=== PATIENT | male | born 1940 | race Caucasian/White ===

== ENCOUNTER 2019-12-02 22:10 | Observation (INO) | payer MEDICARE ==
[2019-12-02] MEDS ORDERED: Sodium Chloride 0.9% 1000 ML 1,000 ML IV STA (22:32)
[2019-12-02] MEDS ORDERED: Sodium Chloride 0.9% 1000 ML 1,000 ML ONE (22:38)
[2019-12-02 23:02] LABS: Absolute Neutrophil Ct (ANC) 8.69 (1.4-6.9); BASOPHIL % 0.2 % (0.0-0.4); Basophil (Absolute #) 0.02 (0-0.4); Eosinophil (Absolute #) 0 (0-0.5); Hematocrit 43.2 % (42-50); Hemoglobin 14.5 gm/dl (12.5-18.0); Lymphocyte (Absolute #) 0.56 (1.0-4.6); Lymphocytes % 5.5 % (24.0-44.0); Mean Cell Volume 91.9 fl (78-100); Mean Corpuscular Hemoglobin 30.9 pg (26-32); Mean Corpuscular Hgb Concent. 33.6 g/dl (32-36); Mean Platelet Volume 9.6 fl (7.5-11.0); Monocyte (Absolute #) 0.83 (0.0-1.3); Monocytes % 8.2 % (0.0-12.0); Neutrophil % 86.1 % (36.0-66.0); Platelet Count 207 K/mm3 (150-450); Red Cell Distribution Width 13.8 % (11.5-14.0); White Blood Count 10.1 K/mm3 (4.0-10.5)
[2019-12-02 23:12] LABS: INR 1.54 (0.8-3.0); PROTIME 17.5 SECONDS (8.83-12.87)
[2019-12-02 23:14] LABS: PTT 35.6 SECONDS (24.1-36.1)
[2019-12-02 23:25] LABS: ALBUMIN 4.1 g/dL (3.5-5.0); ALKALINE PHOSPHATASE 501 U/L (38-126); AMYLASE 65 U/L (30-110); ANION GAP 13.3 MEQ/L (5-15); BLOOD UREA NITROGEN 23 mg/dL (9-20); CHLORIDE 106 mmol/L (98-107); CK-Creatinine Phosphokinase 793 U/L (55-170); Calcium 9.7 mg/dL (8.4-10.2); Carbon Dioxide 22 mmol/L (22-30); Creatinine 1 0.75 mg/dL (0.66-1.25); Glucose 112 mg/dL (74-106); LIPASE 58 U/L (23-300); NT PRO BNP 1320 pg/mL (0-1800); Potassium 3.9 mmol/L (3.5-5.1); SGOT/AST 49 U/L (17-59); SGPT/ALT 17 U/L (0-50); SODIUM 138 mmol/L (137-145); Total Protein 7.5 g/dL (6.3-8.2)
[2019-12-02 23:39] LABS: Erythrocyte Sedimentation Rate 33 mm/hr (0-15)
[2019-12-02 23:40] LABS: Slide Review 1 YES
--- NOTE | 2019-12-03 00:14 | ERPHSYRPT ---
- History of Present Illness Time Seen by Provider: 12/02/19 22:25 Source: patient Exam Limitations: clinical condition Patient Subjective Stated Complaint: pt state he was in a 2 x 2 closet and fell , pt states that he was in the closet for a few hours before he was able to make his way out of the closet, pt states that he was able to crawl out of the closet, pt states that he has been on the ground since 8 am this morning, EMS states that they tried to assist pt to his feet but was unable to do so, EMS states that pt had been in prone position since 8 am, pt states that he has had increased weakness for the past few months Triage Nursing Assessment: pt came into the er via ambulance, pt is axo x3, pt is pale, pt has scattered bruising, abrasion to rt chest and left elbow, clear lung sounds, clear heart tones, strong pulses in all extremities, consultant weak, pupils 3 mm and PERRL, active bowels sounds in all quads, afebrile, hypertensive , dry mucus membranes Physician History: 79-year-old male who was found down this evening apparently had been in the back of a closet where he fell the entire day has multiple pressure sores and abrasions. He could not get out of the closet or get up. Past medical conditions include chronic atrial fib for which he takes Eliquis. Timing/Duration: today Severity: moderate Associated Symptoms: weakness Allergies/Adverse Reactions: No Known Drug Allergies Allergy (Unverified 12/02/19 22:50) Home Medications: Apixaban [Eliquis] 2.5 mg PO DAILY 12/02/19 [History] Atorvastatin Calcium [Lipitor] 40 mg PO DAILY 12/02/19 [History] Metoprolol Tartrate 25 mg PO BID 12/02/19 [History] lisinopriL [Lisinopril] 5 mg PO DAILY 12/02/19 [History] Hx Tetanus, Diphtheria Vaccination/Date Given: Yes Hx Influenza Vaccination/Date Given: No Hx Pneumococcal Vaccination/Date Given: Yes Travel Risk - International Travel Have you traveled outside of the country in past 3 weeks: No - Coronavirus Screening Are you exhibiting any of the following symptoms?: No Close contact with a COVID-19 positive Pt in past 14-21 Days: No - Review of Systems Constitutional: No Fever, No Chills Eyes: No Symptoms Ears, Nose, & Throat: No Symptoms Respiratory: No Cough, No Dyspnea Cardiac: No Chest Pain, No Edema, No Syncope Abdominal/Gastrointestinal: No Abdominal Pain, No Nausea, No Vomiting, No Diarrhea Genitourinary Symptoms: No Dysuria Musculoskeletal: No Back Pain, No Neck Pain Skin: No Rash Neurological: No Dizziness, No Focal Weakness, No Sensory Changes Psychological: No Symptoms Endocrine: No Symptoms All Other Systems: Reviewed and Negative - Past Medical History Pertinent Past Medical History: Yes Neurological History: No Pertinent History ENT History: No Pertinent History Cardiac History: Arrhythmia, High Cholesterol, Hypertension Respiratory History: No Pertinent History Endocrine Medical History: No Pertinent History Musculoskeletal History: Rheumatoid Arthritis GI Medical History: No Pertinent History History: No Pertinent History Psycho-Social History: No Pertinent History Male Reproductive Disorders: Prostate Cancer - Past Surgical History Past Surgical History: Yes Neuro Surgical History: No Pertinent History Cardiac: No Pertinent History Respiratory: No Pertinent History Gastrointestinal: No Pertinent History Genitourinary: No Pertinent History Musculoskeletal: No Pertinent History Male Surgical History: Prostate Surgery Other Surgical History: balloon to the left leg for dvt - Social History Smoking Status: Former smoker Exposure to second hand smoke: No Patient Lives Alone: Yes - Nursing Vital Signs Nursing Vital Signs: Initial Vital Signs Temperature 98.2 F 12/02/19 22:18 Pulse Rate 106 H 12/02/19 22:18 Respiratory Rate 16 12/02/19 22:18 Blood Pressure 145/104 12/02/19 22:18 O2 Sat by Pulse Oximetry 98 12/02/19 22:18 Pain Scale Pain Intensity 0 - Physical Exam General Appearance: mild distress, alert Eye Exam: PERRL/EOMI, eyes nml inspection Ears, Nose, Throat Exam: normal ENT inspection, TMs normal, pharynx normal, moist mucous membranes Neck Exam: normal inspection, non-tender, supple, full range of motion Respiratory Exam: normal breath sounds, lungs clear, No respiratory distress Cardiovascular Exam: regular rate/rhythm, normal heart sounds, normal peripheral pulses Gastrointestinal/Abdomen Exam: soft, normal bowel sounds, No tenderness, No mass Back Exam: normal inspection, normal range of motion, No CVA tenderness, No vertebral tenderness Extremity Exam: normal inspection, normal range of motion, pelvis stable Neurologic Exam: alert, oriented x 3, cooperative, normal mood/affect, nml cerebellar function, nml station & gait, sensation nml, confusion, No motor deficits Skin Exam: normal color, warm, dry, other (Superficial abrasions and areas of erythema from pressure.), No rash Lymphatic Exam: No adenopathy SpO2 Interpretation: normal SpO2: 98 O2 Delivery: Room Air - Course Nursing assessment & vital signs reviewed: Yes EKG Interpreted by Me: RATE (99), A-fib, NORMAL AXIS, NORMAL QRS, Non-specific ST Changes - Radiology Exams Chest X-ray Interpretation: Other (Changes no acute changes noted) - CT Exams Head CT Interpretation: Other (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) Ordered Tests: Active Orders 24 hr Category Date Time Status EKG-ER Only STAT Care 12/02/19 22:32 Active IV Insertion STAT Care 12/02/19 22:32 Active CHEST 1 VIEW (PORTABLE) Stat Exams 12/02/19 22:33 Taken HEAD WITHOUT CONTRAST [CT] Stat Exams 12/02/19 22:35 Taken AMYLASE Stat Lab 12/02/19 22:45 Completed BLOOD CULTURE Stat Lab 12/02/19 22:45 Received CBC W DIFF Stat Lab 12/02/19 22:45 Completed CK-Creatinine Phosphokinase Stat Lab 12/02/19 22:45 Completed CMP Stat Lab 12/02/19 22:45 Completed D-DIMER QUANTITATIVE Stat Lab 12/02/19 22:45 Completed Erythrocyte Sedimentation Rate Stat Lab 12/02/19 22:45 Completed LIPASE Stat Lab 12/02/19 22:45 Completed Lactic Acid Stat Lab 12/02/19 22:45 Completed MAGNESIUM Stat Lab 12/02/19 22:45 Completed NT PRO BNP Stat Lab 12/02/19 22:45 Completed PROTIME WITH INR Stat Lab 12/02/19 22:45 Completed PTT Stat Lab 12/02/19 22:45 Completed TROPONIN Q3H Lab 12/02/19 22:45 Completed TROPONIN Q3H Lab 12/03/19 01:45 Ordered TROPONIN Q3H Lab 12/03/19 04:45 Ordered TROPONIN Q3H Lab 12/03/19 07:45 Ordered TROPONIN Q3H Lab 12/03/19 10:45 Ordered UA W/RFX UR CULTURE Stat Lab 12/02/19 22:33 Uncollected Medication Summary Discontinued Medications Generic Name Dose Route Start Last Admin Trade Name Freq PRN Reason Stop Dose Admin Sodium Chloride 1,000 mls @ 999 mls/hr 12/02/19 22:32 12/02/19 22:39 Sodium Chloride 0.9% 1000 Ml IV 12/02/19 23:32 999 mls/hr .Q1H1M STA Administration Sodium Chloride Confirm 12/02/19 22:38 Sodium Chloride 0.9% 1000 Ml Administered 12/02/19 22:39 Dose 1,000 mls @ ud .ROUTE .STK-MED ONE Lab/Rad Data: Laboratory Result Diagrams 12/02/19 22:45 12/02/19 22:45 Laboratory Results 12/02/19 12/02/19 12/02/19 Range/Units 22:45 22:45 22:45 WBC (4.0-10.5) K/mm3 RBC (4.1-5.6) M/mm3 Hgb (12.5-18.0) gm/dl Hct (42-50) % MCV (78-100) fl MCH (26-32) pg MCHC (32-36) g/dl RDW (11.5-14.0) % Plt Count (150-450) K/mm3 MPV (7.5-11.0) fl Gran % (36.0-66.0) % Eos # (Auto) (0-0.5) Absolute Lymphs (auto) (1.0-4.6) Absolute Monos (auto) (0.0-1.3) Lymphocytes % (24.0-44.0) % Monocytes % (0.0-12.0) % Eosinophils % (0.00-5.0) % Basophils % (0.0-0.4) % Absolute Granulocytes (1.4-6.9) Basophils # (0-0.4) ESR (0-15) mm/hr PT 17.5 H (8.83-12.87) SECONDS INR 1.54 (0.8-3.0) APTT 35.6 (24.1-36.1) SECONDS D-Dimer 2421 H* (215-500) ng/mL Sodium 138 (137-145) mmol/L Potassium 3.9 (3.5-5.1) mmol/L Chloride 106 (98-107) mmol/L Carbon Dioxide 22 (22-30) mmol/L Anion Gap 13.3 (5-15) MEQ/L BUN 23 H (9-20) mg/dL Creatinine 0.75 (0.66-1.25) mg/dL Estimated GFR > 60.0 ML/MIN Glucose 112 H (74-106) mg/dL Lactic Acid (0.4-2.0) Calcium 9.7 (8.4-10.2) mg/dL Magnesium 2.0 (1.6-2.3) mg/dL Total Bilirubin 1.40 H (0.2-1.3) mg/dL AST 49 (17-59) U/L ALT 17 (0-50) U/L Alkaline Phosphatase 501 H (38-126) U/L Creatine Kinase 793 H (55-170) U/L Troponin I 0.031 (0.000-0.034) ng/mL NT-Pro-B Natriuret Pep 1320 (0-1800) pg/mL Serum Total Protein 7.5 (6.3-8.2) g/dL Albumin 4.1 (3.5-5.0) g/dL Amylase 65 (30-110) U/L Lipase 58 (23-300) U/L Slides for Path Review 12/02/19 12/02/19 Range/Units 22:45 22:45 WBC 10.1 (4.0-10.5) K/mm3 RBC 4.70 (4.1-5.6) M/mm3 Hgb 14.5 (12.5-18.0) gm/dl Hct 43.2 (42-50) % MCV 91.9 (78-100) fl MCH 30.9 (26-32) pg MCHC 33.6 (32-36) g/dl RDW 13.8 (11.5-14.0) % Plt Count 207 (150-450) K/mm3 MPV 9.6 (7.5-11.0) fl Gran % 86.1 H (36.0-66.0) % Eos # (Auto) 0 (0-0.5) Absolute Lymphs (auto) 0.56 L (1.0-4.6) Absolute Monos (auto) 0.83 (0.0-1.3) Lymphocytes % 5.5 L (24.0-44.0) % Monocytes % 8.2 (0.0-12.0) % Eosinophils % 0.0 (0.00-5.0) % Basophils % 0.2 (0.0-0.4) % Absolute Granulocytes 8.69 H (1.4-6.9) Basophils # 0.02 (0-0.4) ESR 33 H (0-15) mm/hr PT (8.83-12.87) SECONDS INR (0.8-3.0) APTT (24.1-36.1) SECONDS D-Dimer (215-500) ng/mL Sodium (137-145) mmol/L Potassium (3.5-5.1) mmol/L Chloride (98-107) mmol/L Carbon Dioxide (22-30) mmol/L Anion Gap (5-15) MEQ/L BUN (9-20) mg/dL Creatinine (0.66-1.25) mg/dL Estimated GFR ML/MIN Glucose (74-106) mg/dL Lactic Acid 1.5 (0.4-2.0) Calcium (8.4-10.2) mg/dL Magnesium (1.6-2.3) mg/dL Total Bilirubin (0.2-1.3) mg/dL AST (17-59) U/L ALT (0-50) U/L Alkaline Phosphatase (38-126) U/L Creatine Kinase (55-170) U/L Troponin I (0.000-0.034) ng/mL NT-Pro-B Natriuret Pep (0-1800) pg/mL Serum Total Protein (6.3-8.2) g/dL Albumin (3.5-5.0) g/dL Amylase (30-110) U/L Lipase (23-300) U/L Slides for Path Review YES - Progress Progress: unchanged - Departure Departure Disposition: Observation Clinical Impression: Fall Condition: Fair Critical Care Time: No Referrals: BRENDA BERKOWITZ [Primary Care Provider] - Instructions: Preventing Falls
[2019-12-03] MEDS ORDERED: Sodium Chloride 0.9% 1000 ML 1,000 ML IV SCH (00:15)
[2019-12-03] MEDS: Sodium Chloride 0.9% 1000 ML 1,000 ML IV SCH ×4 (01:17→18:44)
[2019-12-03] MEDS: TYLENOL 325 MG PO PRN (01:17)
[2019-12-03 05:05] LABS: Absolute Neutrophil Ct (ANC) 5.27 (1.4-6.9); BASOPHIL % 0.1 % (0.0-0.4); Basophil (Absolute #) 0.01 (0-0.4); Eosinophil % 0.3 % (0.00-5.0); Eosinophil (Absolute #) 0.02 (0-0.5); Hematocrit 37.2 % (42-50); Hemoglobin 12.2 gm/dl (12.5-18.0); Lymphocyte (Absolute #) 1.13 (1.0-4.6); Mean Cell Volume 92.8 fl (78-100); Mean Corpuscular Hemoglobin 30.4 pg (26-32); Mean Corpuscular Hgb Concent. 32.8 g/dl (32-36); Mean Platelet Volume 9.9 fl (7.5-11.0); Monocyte (Absolute #) 0.64 (0.0-1.3); Monocytes % 9.1 % (0.0-12.0); Neutrophil % 74.5 % (36.0-66.0); Platelet Count 188 K/mm3 (150-450); Red Blood Count 4.01 M/mm3 (4.1-5.6); Red Cell Distribution Width 13.8 % (11.5-14.0); White Blood Count 7.1 K/mm3 (4.0-10.5)
[2019-12-03 06:26] LABS: ALBUMIN 3.1 g/dL (3.5-5.0); ALKALINE PHOSPHATASE 358 U/L (38-126); ANION GAP 9.2 MEQ/L (5-15); BLOOD UREA NITROGEN 23 mg/dL (9-20); CHLORIDE 110 mmol/L (98-107); Calcium 8.8 mg/dL (8.4-10.2); Carbon Dioxide 22 mmol/L (22-30); Creatinine 1 0.64 mg/dL (0.66-1.25); Glucose 117 mg/dL (74-106); Potassium 3.5 mmol/L (3.5-5.1); SGOT/AST 59 U/L (17-59); SGPT/ALT 17 U/L (0-50); SODIUM 138 mmol/L (137-145); Total Protein 6.2 g/dL (6.3-8.2)
--- NOTE | 2019-12-03 09:08 | XRAY ---
Indication: Found on floor following fall. Weakness. Multiple contiguous axial images obtained through the head without contrast. Comparison: None Age-appropriate global atrophy and mild periventricular degenerative micro-ischemia bilaterally. 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 No acute intracranial hemorrhage, hydrocephalus, or mass effect. Fourth ventricle is midline. Bony calvarium intact with mild hyperostosis frontalis interna. Visualized paranasal sinuses and mastoid air cells are clear. 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 No acute intracranial abnormalities. Comment: Preliminary interpretation was made by [facility]. No critical discrepancy.
--- NOTE | 2019-12-03 09:08 | XRAY ---
Indication: Found on floor following fall. Comparison: None Portable chest hyperinflated with a few small bilateral nodules, some appearing calcified and probable calcified granulomas. Mild left infrahilar interstitial opacities, probable fibrosis/scarring. No focal infiltrate, consolidation, or large effusion. Heart is not enlarged. Bony thorax intact with mild osteopenia and degenerative changes. Impression: COPD. Bilateral pulmonary nodules, a few calcified and probably calcific granulomas. Also left infrahilar interstitial opacities, possible fibrosis/scarring. Comparison studies would be of benefit if available elsewhere. If not, CT chest may yield further information.
[2019-12-03] MEDS ORDERED: ELIQUIS 2.5 MG TABLET ONE (10:33)
[2019-12-03] MEDS ORDERED: Zestril 5 MG ONE (10:34)
[2019-12-03] MEDS ORDERED: Lopressor 25MG Tab ONE (10:34)
[2019-12-03] MEDS ORDERED: ZOCOR 20MG ONE (10:34)
[2019-12-03] MEDS: Zestril 5 MG PO SCH (10:43)
[2019-12-03] MEDS: ZOCOR 20MG PO SCH (10:43)
[2019-12-03] MEDS: ELIQUIS 2.5 MG TABLET PO SCH (10:43)
[2019-12-03] MEDS: Lopressor 25MG Tab PO SCH (10:43)
[2019-12-03 16:16] LABS: Appearance SLIGHTLY CLOUDY (CLEAR); Bacteria RARE /HPF (NEGATIVE); Bilirubin NEGATIVE (NEGATIVE); Blood MODERATE Ery/ul (0-5); Glucose NEGATIVE (NEGATIVE); Ketones TRACE (NEGATIVE); Leukocyte Esterase NEGATIVE (NEGATIVE); Mucus SLIGHT /HPF (NEGATIVE); Nitrite NEGATIVE (NEGATIVE); Protein,Urine Dip 30 (Negative); Specific Gravity 1.028 (1.005-1.025); Urobilinogen NEGATIVE mg/dL (0-1)
--- NOTE | 2019-12-03 17:14 | PCM.HP ---
History of Present Illness - Chief Complaint Chief Complaint: Fall Date: 12/03/19 History of Present Illness: is a 79 year old male pt of Dr. Nelson with HTN, hyperlipidemia, rheumatoid arthritis, hx prostate ca, and hx LLE DVT who fell at home in his closet and was there about 10h, unable to stand. He has apparently had increased weakness for the past few months. He denies any syncope. Preliminary reads of head CT and CXR were neg. In ER his CK was initially 793, and this morning was 804. C/o being sore today, particularly around the L side of his rib cage. - Review of Systems Genitourinary Symptoms: Hematuria (intermittently) Neurological: Other (eczema on buttocks) All Other Systems: Reviewed and Negative Medications & Allergies Home Medications: Home Medication List Apixaban [Eliquis] 2.5 mg PO DAILY 12/02/19 [History Confirmed 12/03/19] Atorvastatin Calcium [Lipitor] 40 mg PO DAILY 12/02/19 [History Confirmed 12/03/19] Metoprolol Tartrate 25 mg PO DAILY 12/02/19 [History Confirmed 12/03/19] lisinopriL [Lisinopril] 5 mg PO DAILY 12/02/19 [History Confirmed 12/03/19] Allergies/Adverse Reactions: Allergies Allergy/AdvReac Type Severity Reaction Status Date / Time No Known Drug Allergies Allergy Unverified 12/02/19 22:50 - Past Medical History Past Medical History: Yes Neurological History: No Pertinent History ENT History: No Pertinent History Cardiac History: Arrhythmia, High Cholesterol, Hypertension Respiratory History: No Pertinent History Endocrine Medical History: No Pertinent History Musculoskelatal History: Rheumatoid Arthritis GI Medical History: No Pertinent History History: No Pertinent History Pyscho-Social History: No Pertinent History Male Reproductive Disorders: Prostate Cancer - Past Surgical History Past Surgical History: Yes Neuro Surgical History: No Pertinent History Cardiac History: No Pertinent History Respiratory Surgery: No Pertinent History GI Surgical History: No Pertinent History Genitourinary Surgical Hx: No Pertinent History Musculskeletal Surgical Hx: No Pertinent History Male Surgical History: Prostate Surgery Other Surgical History: balloon to the left leg for dvt - Social History Smoking Status: Former smoker Exposure to second hand smoke: No Alcohol: None Drug Use: none - Physical Exam Vital Signs: Vital Signs - 24 hr Temp Pulse Resp BP BP Pulse Ox 06/16/20 16:00 98.4 F 70 16 122/60 95 12/03/19 12:00 98.4 F 76 16 94/56 94 L 12/03/19 07:58 98.4 F 96 H 16 132/71 96 12/03/19 04:00 98.7 F 85 24 106/64 98 12/03/19 01:56 98.6 F 89 18 135/84 98 12/03/19 01:01 98.6 F 89 135/84 98 12/03/19 00:26 97 H 140/93 99 12/03/19 00:13 98 12/02/19 22:18 98.2 F 106 H 16 145/104 98 General Appearance: no apparent distress, alert Neurologic Exam: oriented x 3, cooperative Eye Exam: eyes nml inspection Ears, Nose, Throat Exam: moist mucous membranes Neck Exam: normal inspection, non-tender, No lymphadenopathy Respiratory Exam: normal breath sounds, lungs clear, other (L ribs nttp, no cre pitus), No crackles/rales, No rhonchi, No wheezing Cardiovascular Exam: regular rate/rhythm, normal heart sounds, No murmur Gastrointestinal/Abdomen Exam: soft, normal bowel sounds, No tenderness, No distention, No mass, No guarding, No rebound Results - Labs Lab/Micro Results: Lab Results-Last 24 Hours 12/02/19 12/02/19 12/02/19 Range/Units 22:45 22:45 22:45 WBC 10.1 (4.0-10.5) K/mm3 RBC 4.70 (4.1-5.6) M/mm3 Hgb 14.5 (12.5-18.0) gm/dl Hct 43.2 (42-50) % MCV 91.9 (78-100) fl MCH 30.9 (26-32) pg MCHC 33.6 (32-36) g/dl RDW 13.8 (11.5-14.0) % Plt Count 207 (150-450) K/mm3 MPV 9.6 (7.5-11.0) fl Gran % 86.1 H (36.0-66.0) % Eos # (Auto) 0 (0-0.5) Absolute Lymphs (auto) 0.56 L (1.0-4.6) Absolute Monos (auto) 0.83 (0.0-1.3) Lymphocytes % 5.5 L (24.0-44.0) % Monocytes % 8.2 (0.0-12.0) % Eosinophils % 0.0 (0.00-5.0) % Basophils % 0.2 (0.0-0.4) % Absolute Granulocytes 8.69 H (1.4-6.9) Basophils # 0.02 (0-0.4) ESR 33 H (0-15) mm/hr PT (8.83-12.87) SECONDS INR (0.8-3.0) APTT (24.1-36.1) SECONDS D-Dimer (215-500) ng/mL Sodium 138 (137-145) mmol/L Potassium 3.9 (3.5-5.1) mmol/L Chloride 106 (98-107) mmol/L Carbon Dioxide 22 (22-30) mmol/L Anion Gap 13.3 (5-15) MEQ/L BUN 23 H (9-20) mg/dL Creatinine 0.75 (0.66-1.25) mg/dL Estimated GFR > 60.0 ML/MIN Glucose 112 H (74-106) mg/dL Lactic Acid 1.5 (0.4-2.0) Calcium 9.7 (8.4-10.2) mg/dL Magnesium 2.0 (1.6-2.3) mg/dL Total Bilirubin 1.40 H (0.2-1.3) mg/dL AST 49 (17-59) U/L ALT 17 (0-50) U/L Alkaline Phosphatase 501 H (38-126) U/L Creatine Kinase 793 H (55-170) U/L Troponin I (0.000-0.034) ng/mL NT-Pro-B Natriuret Pep 1320 (0-1800) pg/mL Serum Total Protein 7.5 (6.3-8.2) g/dL Albumin 4.1 (3.5-5.0) g/dL Amylase 65 (30-110) U/L Lipase 58 (23-300) U/L Urine Color (YELLOW) Urine Appearance (CLEAR) Urine pH (5-6) Ur Specific [place] (1.005-1.025) Urine Protein (Negative) Urine Ketones (NEGATIVE) Urine Blood (0-5) Kiran/ul Urine Nitrite (NEGATIVE) Urine Bilirubin (NEGATIVE) Urine Urobilinogen (0-1) mg/dL Ur Leukocyte Esterase (NEGATIVE) Urine WBC (Auto) (0-5) /HPF Urine RBC (Auto) (0-2) /HPF U Epithel Cells (Auto) (FEW) /HPF Urine Bacteria (Auto) (NEGATIVE) /HPF Urine Mucus (Auto) (NEGATIVE) /HPF Urine Culture Reflexed (NO) Urine Glucose (NEGATIVE) mg/dL Slides for Path Review YES 12/02/19 12/02/19 12/03/19 Range/Units 22:45 22:45 00:00 WBC (4.0-10.5) K/mm3 RBC (4.1-5.6) M/mm3 Hgb (12.5-18.0) gm/dl Hct (42-50) % MCV (78-100) fl MCH (26-32) pg MCHC (32-36) g/dl RDW (11.5-14.0) % Plt Count (150-450) K/mm3 MPV (7.5-11.0) fl Gran % (36.0-66.0) % Eos # (Auto) (0-0.5) Absolute Lymphs (auto) (1.0-4.6) Absolute Monos (auto) (0.0-1.3) Lymphocytes % (24.0-44.0) % Monocytes % (0.0-12.0) % Eosinophils % (0.00-5.0) % Basophils % (0.0-0.4) % Absolute Granulocytes (1.4-6.9) Basophils # (0-0.4) ESR (0-15) mm/hr PT 17.5 H (8.83-12.87) SECONDS INR 1.54 (0.8-3.0) APTT 35.6 (24.1-36.1) SECONDS D-Dimer 2421 H* (215-500) ng/mL Sodium (137-145) mmol/L Potassium (3.5-5.1) mmol/L Chloride (98-107) mmol/L Carbon Dioxide (22-30) mmol/L Anion Gap (5-15) MEQ/L BUN (9-20) mg/dL Creatinine (0.66-1.25) mg/dL Estimated GFR ML/MIN Glucose (74-106) mg/dL Lactic Acid (0.4-2.0) Calcium (8.4-10.2) mg/dL Magnesium (1.6-2.3) mg/dL Total Bilirubin (0.2-1.3) mg/dL AST (17-59) U/L ALT (0-50) U/L Alkaline Phosphatase (38-126) U/L Creatine Kinase 804 H (55-170) U/L Troponin I 0.031 (0.000-0.034) ng/mL NT-Pro-B Natriuret Pep (0-1800) pg/mL Serum Total Protein (6.3-8.2) g/dL Albumin (3.5-5.0) g/dL Amylase (30-110) U/L Lipase (23-300) U/L Urine Color (YELLOW) Urine Appearance (CLEAR) Urine pH (5-6) Ur Specific [place] (1.005-1.025) Urine Protein (Negative) Urine Ketones (NEGATIVE) Urine Blood (0-5) Kiran/ul Urine Nitrite (NEGATIVE) Urine Bilirubin (NEGATIVE) Urine Urobilinogen (0-1) mg/dL Ur Leukocyte Esterase (NEGATIVE) Urine WBC (Auto) (0-5) /HPF Urine RBC (Auto) (0-2) /HPF U Epithel Cells (Auto) (FEW) /HPF Urine Bacteria (Auto) (NEGATIVE) /HPF Urine Mucus (Auto) (NEGATIVE) /HPF Urine Culture Reflexed (NO) Urine Glucose (NEGATIVE) mg/dL Slides for Path Review 12/03/19 12/03/19 12/03/19 Range/Units 02:00 04:45 04:45 WBC 7.1 (4.0-10.5) K/mm3 RBC 4.01 L (4.1-5.6) M/mm3 Hgb 12.2 L (12.5-18.0) gm/dl Hct 37.2 L (42-50) % MCV 92.8 (78-100) fl MCH 30.4 (26-32) pg MCHC 32.8 (32-36) g/dl RDW 13.8 (11.5-14.0) % Plt Count 188 (150-450) K/mm3 MPV 9.9 (7.5-11.0) fl Gran % 74.5 H (36.0-66.0) % Eos # (Auto) 0.02 (0-0.5) Absolute Lymphs (auto) 1.13 (1.0-4.6) Absolute Monos (auto) 0.64 (0.0-1.3) Lymphocytes % 16.0 L (24.0-44.0) % Monocytes % 9.1 (0.0-12.0) % Eosinophils % 0.3 (0.00-5.0) % Basophils % 0.1 (0.0-0.4) % Absolute Granulocytes 5.27 (1.4-6.9) Basophils # 0.01 (0-0.4) ESR (0-15) mm/hr PT (8.83-12.87) SECONDS INR (0.8-3.0) APTT (24.1-36.1) SECONDS D-Dimer (215-500) ng/mL Sodium (137-145) mmol/L Potassium (3.5-5.1) mmol/L Chloride (98-107) mmol/L Carbon Dioxide (22-30) mmol/L Anion Gap (5-15) MEQ/L BUN (9-20) mg/dL Creatinine (0.66-1.25) mg/dL Estimated GFR ML/MIN Glucose (74-106) mg/dL Lactic Acid (0.4-2.0) Calcium (8.4-10.2) mg/dL Magnesium (1.6-2.3) mg/dL Total Bilirubin (0.2-1.3) mg/dL AST (17-59) U/L ALT (0-50) U/L Alkaline Phosphatase (38-126) U/L Creatine Kinase (55-170) U/L Troponin I 0.040 H* 0.049 H* (0.000-0.034) ng/mL NT-Pro-B Natriuret Pep (0-1800) pg/mL Serum Total Protein (6.3-8.2) g/dL Albumin (3.5-5.0) g/dL Amylase (30-110) U/L Lipase (23-300) U/L Urine Color (YELLOW) Urine Appearance (CLEAR) Urine pH (5-6) Ur Specific [place] (1.005-1.025) Urine Protein (Negative) Urine Ketones (NEGATIVE) Urine Blood (0-5) Kiran/ul Urine Nitrite (NEGATIVE) Urine Bilirubin (NEGATIVE) Urine Urobilinogen (0-1) mg/dL Ur Leukocyte Esterase (NEGATIVE) Urine WBC (Auto) (0-5) /HPF Urine RBC (Auto) (0-2) /HPF U Epithel Cells (Auto) (FEW) /HPF Urine Bacteria (Auto) (NEGATIVE) /HPF Urine Mucus (Auto) (NEGATIVE) /HPF Urine Culture Reflexed (NO) Urine Glucose (NEGATIVE) mg/dL Slides for Path Review 12/03/19 12/03/19 12/03/19 Range/Units 04:45 07:50 15:48 WBC (4.0-10.5) K/mm3 RBC (4.1-5.6) M/mm3 Hgb (12.5-18.0) gm/dl Hct (42-50) % MCV (78-100) fl MCH (26-32) pg MCHC (32-36) g/dl RDW (11.5-14.0) % Plt Count (150-450) K/mm3 MPV (7.5-11.0) fl Gran % (36.0-66.0) % Eos # (Auto) (0-0.5) Absolute Lymphs (auto) (1.0-4.6) Absolute Monos (auto) (0.0-1.3) Lymphocytes % (24.0-44.0) % Monocytes % (0.0-12.0) % Eosinophils % (0.00-5.0) % Basophils % (0.0-0.4) % Absolute Granulocytes (1.4-6.9) Basophils # (0-0.4) ESR (0-15) mm/hr PT (8.83-12.87) SECONDS INR (0.8-3.0) APTT (24.1-36.1) SECONDS D-Dimer (215-500) ng/mL Sodium 138 (137-145) mmol/L Potassium 3.5 (3.5-5.1) mmol/L Chloride 110 H (98-107) mmol/L Carbon Dioxide 22 (22-30) mmol/L Anion Gap 9.2 (5-15) MEQ/L BUN 23 H (9-20) mg/dL Creatinine 0.64 L (0.66-1.25) mg/dL Estimated GFR > 60.0 ML/MIN Glucose 117 H (74-106) mg/dL Lactic Acid (0.4-2.0) Calcium 8.8 (8.4-10.2) mg/dL Magnesium (1.6-2.3) mg/dL Total Bilirubin 0.90 (0.2-1.3) mg/dL AST 59 (17-59) U/L ALT 17 (0-50) U/L Alkaline Phosphatase 358 H (38-126) U/L Creatine Kinase (55-170) U/L Troponin I 0.038 H* (0.000-0.034) ng/mL NT-Pro-B Natriuret Pep (0-1800) pg/mL Serum Total Protein 6.2 L (6.3-8.2) g/dL Albumin 3.1 L (3.5-5.0) g/dL Amylase (30-110) U/L Lipase (23-300) U/L Urine Color YELLOW (YELLOW) Urine Appearance SLIGHTLY CLOUDY (CLEAR) Urine pH 5.0 (5-6) Ur Specific [place] 1.028 (1.005-1.025) Urine Protein 30 (Negative) Urine Ketones TRACE (NEGATIVE) Urine Blood MODERATE (0-5) Kiran/ul Urine Nitrite NEGATIVE (NEGATIVE) Urine Bilirubin NEGATIVE (NEGATIVE) Urine Urobilinogen NEGATIVE (0-1) mg/dL Ur Leukocyte Esterase NEGATIVE (NEGATIVE) Urine WBC (Auto) 3-5 (0-5) /HPF Urine RBC (Auto) 6-10 (0-2) /HPF U Epithel Cells (Auto) NONE (FEW) /HPF Urine Bacteria (Auto) RARE (NEGATIVE) /HPF Urine Mucus (Auto) SLIGHT (NEGATIVE) /HPF Urine Culture Reflexed YES (NO) Urine Glucose NEGATIVE (NEGATIVE) mg/dL Slides for Path Review 12/03/19 Range/Units Unknown WBC (4.0-10.5) K/mm3 RBC (4.1-5.6) M/mm3 Hgb (12.5-18.0) gm/dl Hct (42-50) % MCV (78-100) fl MCH (26-32) pg MCHC (32-36) g/dl RDW (11.5-14.0) % Plt Count (150-450) K/mm3 MPV (7.5-11.0) fl Gran % (36.0-66.0) % Eos # (Auto) (0-0.5) Absolute Lymphs (auto) (1.0-4.6) Absolute Monos (auto) (0.0-1.3) Lymphocytes % (24.0-44.0) % Monocytes % (0.0-12.0) % Eosinophils % (0.00-5.0) % Basophils % (0.0-0.4) % Absolute Granulocytes (1.4-6.9) Basophils # (0-0.4) ESR (0-15) mm/hr PT (8.83-12.87) SECONDS INR (0.8-3.0) APTT (24.1-36.1) SECONDS D-Dimer (215-500) ng/mL Sodium (137-145) mmol/L Potassium (3.5-5.1) mmol/L Chloride (98-107) mmol/L Carbon Dioxide (22-30) mmol/L Anion Gap (5-15) MEQ/L BUN (9-20) mg/dL Creatinine (0.66-1.25) mg/dL Estimated GFR ML/MIN Glucose (74-106) mg/dL Lactic Acid (0.4-2.0) Calcium (8.4-10.2) mg/dL Magnesium (1.6-2.3) mg/dL Total Bilirubin (0.2-1.3) mg/dL AST (17-59) U/L ALT (0-50) U/L Alkaline Phosphatase (38-126) U/L Creatine Kinase (55-170) U/L Troponin I 0.030 (0.000-0.034) ng/mL NT-Pro-B Natriuret Pep (0-1800) pg/mL Serum Total Protein (6.3-8.2) g/dL Albumin (3.5-5.0) g/dL Amylase (30-110) U/L Lipase (23-300) U/L Urine Color (YELLOW) Urine Appearance (CLEAR) Urine pH (5-6) Ur Specific [place] (1.005-1.025) Urine Protein (Negative) Urine Ketones (NEGATIVE) Urine Blood (0-5) Kiran/ul Urine Nitrite (NEGATIVE) Urine Bilirubin (NEGATIVE) Urine Urobilinogen (0-1) mg/dL Ur Leukocyte Esterase (NEGATIVE) Urine WBC (Auto) (0-5) /HPF Urine RBC (Auto) (0-2) /HPF U Epithel Cells (Auto) (FEW) /HPF Urine Bacteria (Auto) (NEGATIVE) /HPF Urine Mucus (Auto) (NEGATIVE) /HPF Urine Culture Reflexed (NO) Urine Glucose (NEGATIVE) mg/dL Slides for Path Review - Radiology Impressions Radiology Exams & Impressions: Radiology Procedures Category Date Time Status CHEST 1 VIEW (PORTABLE) Stat Exams 12/02/19 22:33 Completed HEAD WITHOUT CONTRAST [CT] Stat Exams 12/02/19 22:35 Completed Assessment/Plan (1) Fall Current Visit: Yes Status: Acute Assessment & Plan: PT to eval/tx Code(s): W19.XXXA - UNSPECIFIED FALL, INITIAL ENCOUNTER (2) Elevated CK Current Visit: Yes Status: Acute Assessment & Plan: recheck in a.m. Not high enough to be rhabdomyolysis. (3) HTN (hypertension) Current Visit: Yes Status: Acute Qualifiers: Hypertension type: essential hypertension Qualified Code(s): I10 - Essential (primary) hypertension Code(s): I10 - ESSENTIAL (PRIMARY) HYPERTENSION (4) Hyperlipidemia Current Visit: Yes Status: Chronic Qualifiers: Hyperlipidemia type: unspecified Qualified Code(s): E78.5 - Hyperlipidemia, unspecified Code(s): E78.5 - HYPERLIPIDEMIA, UNSPECIFIED (5) Rheumatoid arthritis Current Visit: Yes Status: Chronic Qualifiers: Rheumatoid arthritis location: unspecified site Rheumatoid factor presence: unspecified presence Qualified Code(s): M06.9 - Rheumatoid arthritis, unspecified Code(s): M06.9 - RHEUMATOID ARTHRITIS, UNSPECIFIED
[2019-12-04] MEDS: Sodium Chloride 0.9% 1000 ML 1,000 ML IV SCH ×3 (01:30→17:28)
[2019-12-04] MEDS: TYLENOL 325 MG PO PRN (01:34)
[2019-12-04 05:59] LABS: Absolute Neutrophil Ct (ANC) 4.11 (1.4-6.9); BASOPHIL % 0.5 % (0.0-0.4); Basophil (Absolute #) 0.03 (0-0.4); Eosinophil % 1.3 % (0.00-5.0); Eosinophil (Absolute #) 0.08 (0-0.5); Hematocrit 36.5 % (42-50); Lymphocyte (Absolute #) 1.51 (1.0-4.6); Lymphocytes % 23.9 % (24.0-44.0); Mean Cell Volume 94.3 fl (78-100); Mean Corpuscular Hgb Concent. 32.9 g/dl (32-36); Mean Platelet Volume 9.6 fl (7.5-11.0); Monocyte (Absolute #) 0.58 (0.0-1.3); Monocytes % 9.2 % (0.0-12.0); Neutrophil % 65.1 % (36.0-66.0); Platelet Count 175 K/mm3 (150-450); Red Blood Count 3.87 M/mm3 (4.1-5.6); Red Cell Distribution Width 13.9 % (11.5-14.0); White Blood Count 6.3 K/mm3 (4.0-10.5)
[2019-12-04 06:20] LABS: ALBUMIN 2.9 g/dL (3.5-5.0); ALKALINE PHOSPHATASE 306 U/L (38-126); ANION GAP 6.4 MEQ/L (5-15); BLOOD UREA NITROGEN 20 mg/dL (9-20); CHLORIDE 113 mmol/L (98-107); CK-Creatinine Phosphokinase 430 U/L (55-170); Calcium 8.6 mg/dL (8.4-10.2); Carbon Dioxide 24 mmol/L (22-30); Creatinine 1 0.59 mg/dL (0.66-1.25); Glucose 89 mg/dL (74-106); Potassium 3.7 mmol/L (3.5-5.1); SGOT/AST 68 U/L (17-59); SGPT/ALT 19 U/L (0-50); SODIUM 140 mmol/L (137-145); Total Protein 5.9 g/dL (6.3-8.2)
[2019-12-04] MEDS: ELIQUIS 2.5 MG TABLET PO SCH (09:35)
[2019-12-04] MEDS: Lopressor 25MG Tab PO SCH (09:35)
[2019-12-04] MEDS: ZOCOR 20MG PO SCH (09:35)
[2019-12-04] MEDS: Zestril 5 MG PO SCH (09:35)
--- NOTE | 2019-12-04 13:44 | PCM.NOTE ---
Date and Time: 12/04/19 1341 Subjective Assessment: Pt seen this morning. Per PT, he is doing better but they would like to work with him one more day. He has no specific complaints. When asked he indicates that he feels very sore. - Review of Systems Constitutional: No Fever Abdominal/Gastrointestinal: No Vomiting Objective Exam General Appearance: no apparent distress, alert Neurologic Exam: oriented x 3, cooperative Skin Exam: normal color, warm, dry, No rash Eye Exam: eyes nml inspection Ears, Nose, Throat Exam: moist mucous membranes Respiratory Exam: normal breath sounds, lungs clear, No crackles/rales, No rhonchi, No wheezing Cardiovascular Exam: regular rate/rhythm, normal heart sounds, No murmur Gastrointestinal/Abdomen Exam: soft, normal bowel sounds, No tenderness, No distention, No mass, No guarding, No rebound Extremity Exam: No pedal edema, No swelling Back Exam: normal inspection, No rash OBJECTIVE DATA Vital Signs: Vital Signs - 24 hr Temp Pulse Resp BP Pulse Ox 12/04/19 12:00 98.0 F 74 16 121/66 99 12/04/19 07:36 98.0 F 64 16 122/69 95 12/04/19 03:40 80 16 139/87 98 12/04/19 00:00 98.5 F 79 12 139/87 98 12/03/19 20:00 98.1 F 81 17 128/69 98 12/03/19 16:00 98.4 F 70 16 122/60 95 Pain Assessment - Last Documented Pain Intensity 0 Pain Scale Used 0-10 Pain Scale Intake and Output: Intake & Output 12/02/19 12/03/19 12/04/19 12/05/19 11:59 11:59 11:59 11:59 Intake Total 240 2732 380 Output Total 300 Balance -60 2732 380 Weight 78.3 kg Lab Results: Lab Results-Last 24 Hours 12/03/19 12/03/19 12/03/19 Range/Units 15:48 Unknown Unknown WBC (4.0-10.5) K/mm3 RBC (4.1-5.6) M/mm3 Hgb (12.5-18.0) gm/dl Hct (42-50) % MCV (78-100) fl MCH (26-32) pg MCHC (32-36) g/dl RDW (11.5-14.0) % Plt Count (150-450) K/mm3 MPV (7.5-11.0) fl Gran % (36.0-66.0) % Eos # (Auto) (0-0.5) Absolute Lymphs (auto) (1.0-4.6) Absolute Monos (auto) (0.0-1.3) Lymphocytes % (24.0-44.0) % Monocytes % (0.0-12.0) % Eosinophils % (0.00-5.0) % Basophils % (0.0-0.4) % Absolute Granulocytes (1.4-6.9) Basophils # (0-0.4) Sodium (137-145) mmol/L Potassium (3.5-5.1) mmol/L Chloride (98-107) mmol/L Carbon Dioxide (22-30) mmol/L Anion Gap (5-15) MEQ/L BUN (9-20) mg/dL Creatinine (0.66-1.25) mg/dL Estimated GFR ML/MIN Glucose (74-106) mg/dL Hemoglobin A1c 5.07 (4.5-6.0) % Calcium (8.4-10.2) mg/dL Total Bilirubin (0.2-1.3) mg/dL AST (17-59) U/L ALT (0-50) U/L Alkaline Phosphatase (38-126) U/L Creatine Kinase (55-170) U/L Troponin I 0.030 (0.000-0.034) ng/mL Serum Total Protein (6.3-8.2) g/dL Albumin (3.5-5.0) g/dL Urine Color YELLOW (YELLOW) Urine Appearance SLIGHTLY CLOUDY (CLEAR) Urine pH 5.0 (5-6) Ur Specific [place] 1.028 (1.005-1.025) Urine Protein 30 (Negative) Urine Ketones TRACE (NEGATIVE) Urine Blood MODERATE (0-5) Kiran/ul Urine Nitrite NEGATIVE (NEGATIVE) Urine Bilirubin NEGATIVE (NEGATIVE) Urine Urobilinogen NEGATIVE (0-1) mg/dL Ur Leukocyte Esterase NEGATIVE (NEGATIVE) Urine WBC (Auto) 3-5 (0-5) /HPF Urine RBC (Auto) 6-10 (0-2) /HPF U Epithel Cells (Auto) NONE (FEW) /HPF Urine Bacteria (Auto) RARE (NEGATIVE) /HPF Urine Mucus (Auto) SLIGHT (NEGATIVE) /HPF Urine Culture Reflexed YES (NO) Urine Glucose NEGATIVE (NEGATIVE) mg/dL 12/04/19 12/04/19 Range/Units 05:45 05:45 WBC 6.3 (4.0-10.5) K/mm3 RBC 3.87 L (4.1-5.6) M/mm3 Hgb 12.0 L (12.5-18.0) gm/dl Hct 36.5 L (42-50) % MCV 94.3 (78-100) fl MCH 31.0 (26-32) pg MCHC 32.9 (32-36) g/dl RDW 13.9 (11.5-14.0) % Plt Count 175 (150-450) K/mm3 MPV 9.6 (7.5-11.0) fl Gran % 65.1 (36.0-66.0) % Eos # (Auto) 0.08 (0-0.5) Absolute Lymphs (auto) 1.51 (1.0-4.6) Absolute Monos (auto) 0.58 (0.0-1.3) Lymphocytes % 23.9 L (24.0-44.0) % Monocytes % 9.2 (0.0-12.0) % Eosinophils % 1.3 (0.00-5.0) % Basophils % 0.5 (0.0-0.4) % Absolute Granulocytes 4.11 (1.4-6.9) Basophils # 0.03 (0-0.4) Sodium 140 (137-145) mmol/L Potassium 3.7 (3.5-5.1) mmol/L Chloride 113 H (98-107) mmol/L Carbon Dioxide 24 (22-30) mmol/L Anion Gap 6.4 (5-15) MEQ/L BUN 20 (9-20) mg/dL Creatinine 0.59 L (0.66-1.25) mg/dL Estimated GFR > 60.0 ML/MIN Glucose 89 (74-106) mg/dL Hemoglobin A1c (4.5-6.0) % Calcium 8.6 (8.4-10.2) mg/dL Total Bilirubin 0.80 (0.2-1.3) mg/dL AST 68 H (17-59) U/L ALT 19 (0-50) U/L Alkaline Phosphatase 306 H (38-126) U/L Creatine Kinase 430 H (55-170) U/L Troponin I (0.000-0.034) ng/mL Serum Total Protein 5.9 L (6.3-8.2) g/dL Albumin 2.9 L (3.5-5.0) g/dL Urine Color (YELLOW) Urine Appearance (CLEAR) Urine pH (5-6) Ur Specific [place] (1.005-1.025) Urine Protein (Negative) Urine Ketones (NEGATIVE) Urine Blood (0-5) Kiran/ul Urine Nitrite (NEGATIVE) Urine Bilirubin (NEGATIVE) Urine Urobilinogen (0-1) mg/dL Ur Leukocyte Esterase (NEGATIVE) Urine WBC (Auto) (0-5) /HPF Urine RBC (Auto) (0-2) /HPF U Epithel Cells (Auto) (FEW) /HPF Urine Bacteria (Auto) (NEGATIVE) /HPF Urine Mucus (Auto) (NEGATIVE) /HPF Urine Culture Reflexed (NO) Urine Glucose (NEGATIVE) mg/dL Radiology Exams: Radiology Procedures Category Date Time Status CHEST 1 VIEW (PORTABLE) Stat Exams 12/02/19 22:33 Completed HEAD WITHOUT CONTRAST [CT] Stat Exams 12/02/19 22:35 Completed Assessment/Plan (1) Fall Current Visit: Yes Status: Acute Qualifiers: Encounter type: subsequent encounter Qualified Code(s): W19.XXXD - Unspecified fall, subsequent encounter Assessment & Plan: Doing well with PT; may well be ready to d/c home after therapy tomorrow. Pt lives alone. Code(s): W19.XXXA - UNSPECIFIED FALL, INITIAL ENCOUNTER (2) Elevated CK Current Visit: Yes Status: Acute Assessment & Plan: much improved, down to 430 today. (3) HTN (hypertension) Current Visit: Yes Status: Acute Qualifiers: Hypertension type: essential hypertension Qualified Code(s): I10 - Essential (primary) hypertension Code(s): I10 - ESSENTIAL (PRIMARY) HYPERTENSION (4) Hyperlipidemia Current Visit: Yes Status: Chronic Qualifiers: Hyperlipidemia type: unspecified Qualified Code(s): E78.5 - Hyperlipidemia, unspecified Code(s): E78.5 - HYPERLIPIDEMIA, UNSPECIFIED (5) Rheumatoid arthritis Current Visit: Yes Status: Chronic Qualifiers: Rheumatoid arthritis location: unspecified site Rheumatoid factor presence: unspecified presence Qualified Code(s): M06.9 - Rheumatoid arthritis, unspecified Code(s): M06.9 - RHEUMATOID ARTHRITIS, UNSPECIFIED
[2019-12-05] MEDS: Sodium Chloride 0.9% 1000 ML 1,000 ML IV SCH ×3 (00:10→13:25)
[2019-12-05] MEDS: TYLENOL 325 MG PO PRN (00:12)
[2019-12-05] MEDS: ZOCOR 20MG PO SCH (09:01)
[2019-12-05] MEDS: Lopressor 25MG Tab PO SCH (09:01)
[2019-12-05] MEDS: ELIQUIS 2.5 MG TABLET PO SCH (09:02)
[2019-12-05] MEDS: Zestril 5 MG PO SCH (09:02)
[2019-12-05 11:23] VITALS: BP 127/73; PULSE 79
--- NOTE | 2019-12-05 12:02 | PCM.DS ---
Discharge Summary Date of Admission: 12/03/19 00:26 Admitting Physician: LAMIN US Primary Care Provider: BRENDA BERKOWITZ Allergies Allergies No Known Drug Allergies Allergy (Unverified 12/02/19 22:50) Hospital Summary - Hospital Course Hospital Course: is a 79 year old male pt of Dr. Nelson with HTN, hyperlipidemia, rheumatoid arthritis, hx prostate ca, and hx LLE DVT who was admitted through ER after he fell at home in his closet and was there about 10h, unable to stand. He has apparently had increased weakness for the past few months. He denies any syncope. Head CT and CXR were non acute. CK was elevated but not enough to be termed "rhabdomolysis." Renal function was preserved throughout. LFTs have been elevated (AST to 500 on admission, have been decreasing but still elevated.). Tbili was initially 1.4 but now wnl. He has been working with PT and doing well; they anticipate that after today's session he will be ready to discharge to home. He is concerned about refills for several of his meds, as he finds it difficult to get to doctor's appointments (his daughter is his caregiver, but she lives in [place], [place]). I will give him rf for 1 mo. Pt should f/u with PCP in 1 week. - Vitals & Intake/Output Vital Signs: Vital Signs Temperature 98.3 F 12/05/19 11:23 Pulse Rate 79 12/05/19 11:23 Respiratory Rate 18 12/05/19 11:23 Blood Pressure 127/73 12/05/19 11:23 O2 Sat by Pulse Oximetry 95 12/05/19 11:23 Intake & Output: Intake & Output 12/02/19 12/03/19 12/04/19 12/05/19 11:59 11:59 11:59 11:59 Intake Total 240 2732 2786 Output Total 300 725 Balance -60 2732 2061 Weight 78.3 kg - Lab Result Diagrams: 12/04/19 05:45 12/04/19 05:45 Micro Results-Entire Visit: Microbiology 12/03/19 15:48 Urine Culture - Final Urine, Void MIXED RIKKI; 3 OR MORE TYPES. NO PREDOMINANT ORGANISM. NO FURTHER WORKUP. PLEASE RESUBMIT IF CLINICALLY INDICATED. 12/02/19 22:45 Blood Culture - Preliminary Blood NO GROWTH TO DATE 12/02/19 22:45 Blood Culture - Preliminary Blood NO GROWTH TO DATE - Procedures and Test Procedures and Tests throughout Hospitalization: Therapy Orders & Screens 12/03/19 02:17 OT Screen per Nursing Assess Comment: Protocol Order Physician Instructions: Greater than 3 points order OT Admission Screening Reason For Exam: Triggered on Admission Diagnosis: Fall Open Wound/Cellutlitis/Pressure Ulcers: No Acute Fx/ORIF/Change in wt bearing status: No Severe MUSCULOSKELETAL pain: No ADL Dysfunction: Yes Acute CVA w/Hemiparesis/Hemiplegia: No Decreased Functional Mobility/Strength: Yes Sprain/Strain: No Acute Post-op Mobility Dysfunction: No Total Points: 4 12/03/19 14:25 OT Eval and Treat ( Order) ROUTINE Comment: Consulting Provider: Physician Instructions: Reason For Exam: Diagnosis: Fall PT Eval & Treat (MD Order) ROUTINE Reason for Eval:: weakness Diagnosis: Fall 12/04/19 14:32 OT Clarification Order ROUTINE Comment: Physician Instructions: Reason For Exam: OT Clarification: OT TO TX 5X/WK TO INCREASE MR. ADAIR'S OVERALL ABILITY TO PERFORM ADLS/IADLS, AND FUNCTIONAL MOBILITY SAFELY AND INDEPENDENTLY SO THAT HE MAY BE D/C TO HOME ENVIRONMENT AT [facility] WITH ASSIST FROM FAMILY NEEDED. HE WILL ALSO BENEFIT FROM THERAPUETIC EXERCISES AND ACTIVITIES WELL A.E./DME TRAINING/EDUCATION TO OPTIMIZE HIS SAFETY AT HOME. Discharge Exam General Appearance: no apparent distress, alert Neurologic Exam: oriented x 3, cooperative, other (limited affect as usual) Eye Exam: eyes nml inspection Ears, Nose, Throat Exam: moist mucous membranes Respiratory Exam: normal breath sounds, lungs clear, No crackles/rales, No rhonchi, No wheezing Cardiovascular Exam: normal heart sounds, irregular, No murmur Gastrointestinal/Abdomen Exam: soft, normal bowel sounds, No tenderness, No distention, No mass, No guarding, No rebound Back Exam: normal inspection, No rash Extremity Exam: normal inspection, No pedal edema, No swelling Skin Exam: normal color, warm, dry, No rash Final Diagnosis/Problem List - Final Discharge Diagnosis/Problem (1) Fall Current Visit: Yes Status: Acute Code(s): W19.XXXA - UNSPECIFIED FALL, INITIAL ENCOUNTER (2) Elevated CK Current Visit: Yes Status: Resolved (3) HTN (hypertension) Current Visit: Yes Status: Chronic Code(s): I10 - ESSENTIAL (PRIMARY) HYPERTENSION (4) Hyperlipidemia Current Visit: Yes Status: Chronic Code(s): E78.5 - HYPERLIPIDEMIA, UNSPECIFIED (5) Rheumatoid arthritis Current Visit: Yes Status: Chronic Code(s): M06.9 - RHEUMATOID ARTHRITIS, UNSPECIFIED (6) Atrial fibrillation Current Visit: Yes Status: Acute Assessment & Plan: on Eliquis Code(s): I48.91 - UNSPECIFIED ATRIAL FIBRILLATION - Discharge Disposition: Home, Self-Care Condition: Stable Prescriptions: Continue Apixaban [Eliquis] 2.5 mg PO DAILY #30 tablet Atorvastatin Calcium [Lipitor] 40 mg PO DAILY #30 tablet lisinopriL [Lisinopril] 5 mg PO DAILY #30 tablet Metoprolol Tartrate 25 mg PO DAILY #30 tablet Instructions: Preventing Falls Additional Instructions: [facility] will contact you to arrange initial visit. You may call them at [phone] with any questions. Follow up with: BRENDA BERKOWITZ [Primary Care Provider] - 12/09/19 1:30 pm
[2019-12-05 12:04] LABS: ALKALINE PHOSPHATASE 299 U/L (38-126); ANION GAP 9.7 MEQ/L (5-15); BLOOD UREA NITROGEN 18 mg/dL (9-20); CHLORIDE 110 mmol/L (98-107); CK-Creatinine Phosphokinase 139 U/L (55-170); Calcium 8.5 mg/dL (8.4-10.2); Carbon Dioxide 24 mmol/L (22-30); Creatinine 1 0.61 mg/dL (0.66-1.25); Glucose 99 mg/dL (74-106); Potassium 4.1 mmol/L (3.5-5.1); SGOT/AST 58 U/L (17-59); SGPT/ALT 22 U/L (0-50); SODIUM 140 mmol/L (137-145)
[2019-12-05 16:03] VITALS: O2SAT 96
[2019-12-07 15:42] LABS: HEPATITIS A IGM Non Reactive (Non Reactive); HEPATITIS B VIRUS CORE TOT AB Non Reactive (Non Reactive); HEPATITIS C VIRUS ANTIBODY Non Reactive (Non Reactive); Hepatitis B Surface Ab.Quant. <3.50 mIU/mL (0.00-8.49); Hepatitis B Surface Antigen Non Reactive (Non Reactive)
== END 2019-12-05 17:35 | disposition home health service (06) ==
LOC: ED 22:10 → MED SURG 12-03 00:26
PROVIDERS: ADMIT Family Medicine; ATTEND Family Medicine
DX: M06.9 Rheumatoid arthritis, unspecified (principal); R53.1 Weakness; R94.4 Abnormal results of kidney function studies; I10 Essential (primary) hypertension; E78.5 Hyperlipidemia, unspecified; I48.91 Unspecified atrial fibrillation; L30.9 Dermatitis, unspecified; R31.9 Hematuria, unspecified; E78.00 Pure hypercholesterolemia, unspecified; Z85.46 Personal history of malignant neoplasm of prostate; Z86.718 Personal history of other venous thrombosis and embolism; Z79.01 Long term (current) use of anticoagulants; W19.XXXA Unspecified fall, initial encounter; Y92.008 Other place in unspecified non-institutional (private) residence as the place of occurrence of the external cause; Z79.899 Other long term (current) drug therapy
CPT/HCPCS: 36415; 70450; 71045; 80053; 80074; 81001; 82150; 82550; 83036; 83605; 83690; 83735; 83880; 84484; 85025; 85379; 85610; 85652; 85730; 87040; 87086; 93005; 93268; 96360; 97110; 97161; 97165; 97530; 99285; G0378; A9270-GY